=== PATIENT | female | born 1945 | race Caucasian/White ===

== ENCOUNTER 2017-08-16 09:34 | Emergency (ER) | payer MEDICARE ==
[~2017-08-16] VITALS: Ht 160 cm; Wt 84.0 kg
[2017-08-16] MEDS ORDERED: SINGULAIR10 MG PO (09:48)
[2017-08-16] MEDS ORDERED: CLARITIN-D1 TA2 PO (09:48)
[2017-08-16] MEDS ORDERED: CELEXA20 M1 PO (09:48)
[2017-08-16] MEDS ORDERED: ASPIRIN 81 LOW81 MG PO (09:48)
[2017-08-16] MEDS ORDERED: IMITREX25 MG PO (09:49)
[2017-08-16] MEDS ORDERED: NEXIUM40 M1 PO (09:49)
[2017-08-16 10:13] LABS: INFLUENZA A NONE DETECTED (NONE DETECT); INFLUENZA B NONE DETECTED (NONE DETECT)
[2017-08-16 10:15] VITALS: BP 133/78
[2017-08-16] MEDS ORDERED: DOXYCYCLINE100 MG PO (10:16)
== END 2017-08-16 10:15 | disposition home or self-care (01) ==
LOC: ED 09:34
PROVIDERS: Family Medicine
DX: J06.9 Acute upper respiratory infection, unspecified (principal); R05 Cough; R09.81 Nasal congestion

== ENCOUNTER 2017-10-08 08:45 | Emergency (ER) | payer MEDICARE ==
[~2017-10-08] VITALS: Ht 160 cm; Wt 85.0 kg
[~2017-10-08 08:45] MED LIST: ASPIRIN 81 LOW81 MG PO; CELEXA20 M1 PO; CLARITIN-D1 TA2 PO; DOXYCYCLINE100 MG PO; IMITREX25 MG PO; NEXIUM40 M1 PO; SINGULAIR10 MG PO
[2017-10-08 10:01] LABS: INFLUENZA A POSITIVE (NONE DETECT); INFLUENZA B NONE DETECTED (NONE DETECT)
[2017-10-08] MEDS ORDERED: TAM75CAP PO (10:10)
[2017-10-08 10:21] VITALS: BP 143/65
== END 2017-10-08 10:22 | disposition home or self-care (01) ==
LOC: ED 08:45
PROVIDERS: Emergency Medicine
DX: J11.1 Influenza due to unidentified influenza virus with other respiratory manifestations (principal); K31.84 Gastroparesis; J32.9 Chronic sinusitis, unspecified; F41.9 Anxiety disorder, unspecified; K44.9 Diaphragmatic hernia without obstruction or gangrene; Z85.3 Personal history of malignant neoplasm of breast

== ENCOUNTER 2017-10-11 08:29 | Emergency (ER) | payer MEDICARE ==
[~2017-10-11] VITALS: Ht 160 cm; Wt 62.0 kg
[~2017-10-11 08:29] MED LIST changes: +TAM75CAP PO
[2017-10-11 09:29] LABS: HEMATOCRIT 39.1 % (37.0-47.0); IMMATURE GRANULOCYTES 0.5 % (0.0-1.0); MEAN CELL VOLUME 90.3 fL CALC (80.0-100.0); MEAN CORPUSCULAR HGB CONC 33.2 g/L CALC (32.0-36.0); NEUT# 4.44 thou/uL (2.00-7.15); RED BLOOD COUNT 4.33 mill/uL (4.20-5.60); RED CELL DISTRI WIDTH 14.1 % (11.5-15.5)
[2017-10-11] MEDS ORDERED: PROVENTIL108 MCG/AC IN (10:10)
[2017-10-11] MEDS ORDERED: ZITHROMAX250 MG PO (10:10)
[2017-10-11 10:18] VITALS: BP 158/64
== END 2017-10-11 10:43 | disposition home or self-care (01) ==
LOC: ED 08:29
PROVIDERS: Emergency Medicine
DX: J11.1 Influenza due to unidentified influenza virus with other respiratory manifestations (principal); K31.84 Gastroparesis; F41.9 Anxiety disorder, unspecified; K44.9 Diaphragmatic hernia without obstruction or gangrene; J32.9 Chronic sinusitis, unspecified

== ENCOUNTER 2017-10-17 10:31 | Emergency (ER) | payer MEDICARE ==
[~2017-10-17] VITALS: Ht 160 cm; Wt 84.8 kg
[~2017-10-17 10:31] MED LIST changes: +PROVENTIL108 MCG/AC IN; +ZITHROMAX250 MG PO
[2017-10-17] MEDS ORDERED: DESLORATADINE5 MG PO (10:53)
[2017-10-17] MEDS ORDERED: ADLT ASA LOW81 MG PO (10:55)
[2017-10-17 11:28] LABS: HEMATOCRIT 40.8 % (37.0-47.0); HEMOGLOBIN 13.7 g/dl (12.0-16.0); IMMATURE GRANULOCYTES 0.9 % (0.0-1.0); MEAN CELL VOLUME 90.7 fL CALC (80.0-100.0); MEAN CORPUSCULAR HGB 30.4 pG CALC (26.0-32.0); MEAN CORPUSCULAR HGB CONC 33.6 g/L CALC (32.0-36.0); NEUT# 5.84 thou/uL (2.00-7.15); RED BLOOD COUNT 4.5 mill/uL (4.20-5.60); RED CELL DISTRI WIDTH 13.8 % (11.5-15.5)
[2017-10-17 11:46] LABS: ALBUMIN 4.2 g/dL (3.2-5.0); ALKALINE PHOSPHATASE 77 u/l (38-126); ANION GAP 18 (6-22 (CALC)); BILIRUBIN, TOTAL 0.4 mg/dL (0.0-1.4); BUN 11 mg/dL (8-23); BUN/CREATININE RATIO 16 (12-20 (CALC)); CARBON DIOXIDE 29 mmol/l (22-30); CHLORIDE 96 mmol/l (95-108); CREATININE 0.7 mg/dL (0.5-1.0); GFR > 60 ML/MIN (>=60 (CALC)); GFR FOR AFR.AMER. > 60 ML/MIN (>=60 (CALC)); POTASSIUM 4.9 mmol/l (3.5-5.1); SGOT/AST 25 u/l (9-36); SGPT/ALT 34 u/l (11-66); SODIUM 138 mmol/l (137-146); TOTAL PROTEIN 7.5 g/dL (6.3-8.2)
[2017-10-17] MEDS ORDERED: MEDDOSEPAK PO (12:20)
[2017-10-17] MEDS ORDERED: PROVENTIL108 MCG/AC IN (12:20)
[2017-10-17 12:30] VITALS: BP 144/74
== END 2017-10-17 12:30 | disposition home or self-care (01) ==
LOC: ED 10:31
PROVIDERS: Emergency Medicine
DX: J06.9 Acute upper respiratory infection, unspecified (principal); R09.89 Other specified symptoms and signs involving the circulatory and respiratory systems; R05 Cough; K31.84 Gastroparesis; K44.9 Diaphragmatic hernia without obstruction or gangrene; B94.8 Sequelae of other specified infectious and parasitic diseases